=== PATIENT | male | born 1960 | race Two or more races ===

== ENCOUNTER 2025-11-19 17:56 | Inpatient (IN) | payer MEDICAID, OTHER ==
[~2025-11-19] VITALS: Ht 185.4 cm; Wt 89.5 kg
[2025-11-19 18:05] VITALS: PULSE 74; RESP 14; O2SAT 100
--- NOTE | 2025-11-19 19:24 | DVH ---
EXAM: CT HEAD WITHOUT CONTRAST INDICATION: ALOC TECHNIQUE: CT of the head without intravenous contrast. Radiation Dose Information: CT Dose: CTDI volume is 55.86 mGy. Dose-length product is 1007.13 mGy*cm The dose indicators for CT are the volume Computed Tomography (CT) Dose Index (CTDIvol) and the Dose Length Product (DLP), and are measured in units of mGy and mGy-cm, respectively. These indicators are not patient dose, but values generated from the CT scanner acquisition factors. The report includes radiation exposure data for exposures received during this examination. COMPARISON: None FINDINGS: There is no evidence of acute intracranial hemorrhage, extra-axial collection, mass effect, midline shift, herniation or hydrocephalus. The ventricles, sulci and cisterns are age appropriate. The ramos-white differentiation is intact. Patchy periventricular and subcortical white matter hypoattenuation is nonspecific but may be related to small vessel ischemic disease. The visualized paranasal sinuses and mastoid air cells are clear. The surrounding soft tissues and osseous structures are unremarkable. IMPRESSION: No acute intracranial abnormality.
--- NOTE | 2025-11-19 19:32 | DVH ---
INDICATION: SOB TECHNIQUE: Frontal view of the chest. COMPARISON: None FINDINGS: . Cardiomegaly . There is no evidence of pleural disease. The lungs are clear. The bony structures of the chest are intact without fracture. IMPRESSION: 1. Cardiomegaly with chf
[2025-11-19 19:35] LABS: Hematocrit 37.3 % (41.0-53.0); Hemoglobin 12.6 g/dL (13.5-17.5); Mean Corpuscular Hemoglobin 31.6 pg (28.0-32.0); Mean Corpuscular Volume 93.2 fL (80.0-100.0); Nucleated Red Blood Cells % 0.0 %
[2025-11-19] MEDS: SODIUM CHLORIDE 0.9% 2,000 ML IV ONE (19:48)
[2025-11-19 19:50] LABS: Alanine Aminotransferase 17 U/L (7-40); Albumin 4.1 g/dL (3.2-4.8); Anion Gap 7 (5-15); BUN/Creatinine Ratio 16.2 (10.0-20.0); Blood Urea Nitrogen 12 mg/dL (9-23); Calcium 9.5 mg/dL (8.7-10.4); Carbon Dioxide 28 mmol/L (20-31); Chloride 103 mmol/L (98-107); Glucose 102 mg/dL (74-106); Magnesium 2.0 mg/dL (1.6-2.6); Potassium 4.0 mmol/L (3.5-5.1); Sodium 138 mmol/L (136-145); Total Protein 6.7 g/dL (5.7-8.2)
[2025-11-19 19:51] LABS: Bilirubin, Total 0.4 mg/dL (0.2-1.0)
[2025-11-19 19:59] LABS: Alkaline Phosphatase 37 U/L (46-116)
--- NOTE | 2025-11-19 20:00 | ECG ---
[facility] Test Date: 2025-11-19 Test Time: 17:59:25 Pat Name: STEVO JAMISON Department: [facility] ED Patient ID: [id number] Room: 0284 Gender: M Population Health Coach: BURT : 1960 Requested By: EMERGENCY EMERGENCY Order Number: [id number] Reading MD: Dontae Montoya Measurements Intervals [place] Rate: 75 P: 82 SC: 141 QRS: 37 QRSD: 136 T: 72 QT: 419 QTc: 468 Interpretive Statements Sinus rhythm IVCD, consider atypical RBBB Electronically Signed On 11-22-2025 17:05:09 PST by Dontae Montoya Please click the below link to view image of tracing.
--- NOTE | 2025-11-19 20:01 | ED.PDOC ---
History of Present Illness HPI Comments 65 y/o M is BIBA from [facility] for c/c of AMS. Per EMS personnel report, patient was found altered, this evening. Normally, patient is reported by staff to be A&Ox3, ambulating and communicating without issue, at baseline. On scene, patient was found with pinpoint pupils and unresponsive to verbal or painful stimuli. All other vitals stable and within normal limits. Limited history of schizophrenia and hypertension. No change with 2x IN and IV Narcan administration. Patient arrived to ED on 100% O2 at 2LPM [place]. Further history is unobtainable, due to patient's current clinical presentation and absence of family/lime kiln and recausticizing operator historian. Chief Complaint: ALOC Time Seen by MD: 18:20 Reviewed Notes: Nurses Notes, Fudger Notes, Medications, Allergies Allergies: Coded Allergies: Penicillins (Verified Allergy, Unknown, 11/19/25) Information Source: Patient, Emergency Med Personnel Mode of Arrival: EMS Severity: Moderate Timing: Hours Duration: Since onset Prehospital treatment: None Past Medical History PAST MEDICAL HISTORY: Denies Surgical History: Denies all surgeries Family History Family History: Unknown Social History Smoker: Non-Smoker Alcohol: Denies ETOH Use Drugs: Denies Drug Use Lives In: Home All Other Systems: Reviewed and Negative (As per HPI) Physical Exam General Appearance: No Apparent Distress, Obese HEENT: Normal ENT Inspection, Pharynx Normal, TMs Normal Neck: Full Range of Motion, Non-Tender, Normal, Normal Inspection Respiratory: Chest Non-Tender, Lungs Clear, No Accessory Muscle Use, No Respiratory Distress, Normal Breath Sounds Cardiovascular: No Edema, No JVD, No Murmur, No Gallop, Normal Peripheral Pulses, Regular Rate/Rhythm Breast Exam: Deferred Gastrointestinal: No Organomegaly, Non Tender, No Pulsatile Mass, Normal Bowel Sounds, Soft Genitalia: Deferred Pelvic: Deferred Rectal: Deferred Extremities: No calf tenderness, Normal capillary refill, Normal inspection, Normal range of motion, Non-tender, No pedal edema Musculoskeletal : Apperance: Normal Neurologic: Alert, operations label clerk II-XII nml as Tested, No Motor Deficits, Normal Affect, Normal Mood, No Sensory Deficits Cerebellar Function: Normal Reflexes: Normal Skin: Dry, Normal Color, Warm Lymphatic: No Adenopathy Was a procedure done? Was a procedure done?: No Differential Dx Considerations may include: encephalopathy, dehydration, electrolyte imbalance, opiate abuse, among others X-Ray, Labs, Meds, VS Vital Signs Date Time Temp Pulse Resp B/P (MAP) Pulse Ox O2 Delivery O2 Flow Rate FiO2 11/19/25 19:02 74 14 86/53 (64) 99 11/19/25 18:05 74 14 100 Room Air* 0 21 11/19/25 18:05 98.4 74 14 111/62 (78) 100 98.4 11/19/25 17:59 75 11/19/25 17:58 97.4 75 14 134/78 100 97.4 Lab Test 11/19/25 20:07 11/19/25 18:57 11/19/25 18:30 Range/Units Troponin I High Sensitivity Pending 3 L </=54 ng/L White Blood Count 6.2 4.4-10.8 10^3/uL Red Blood Count 4.00 L 4.5-5.90 10^6/uL Hemoglobin 12.6 L 13.5-17.5 g/dL Hematocrit 37.3 L 41.0-53.0 % Mean Corpuscular Volume 93.2 80.0-100.0 fL Mean Corpuscular Hemoglobin 31.6 28.0-32.0 pg Mean Corpuscular Hemoglobin Concent 33.9 32.0-36.0 g/dL Red Cell Distribution Width 15.1 H 11.8-14.3 % Platelet Count 213 140-450 10^3/uL Mean Platelet Volume 7.4 6.9-10.8 fL Neutrophils (%) (Auto) 72.5 37.0-80.0 % Lymphocytes (%) (Auto) 19.1 10.0-50.0 % Monocytes (%) (Auto) 8.0 0.0-12.0 % Eosinophils (%) (Auto) 0.1 0.0-7.0 % Basophils (%) (Auto) 0.3 0.0-2.0 % Neutrophils # (Auto) 4.5 1.6-8.6 10 ^3/uL Lymphocytes # (Auto) 1.2 0.4-5.4 10 ^3/uL Monocytes # (Auto) 0.5 0-1.3 10 ^3/uL Eosinophils # (Auto) 0 0-0.8 10 ^3/uL Basophils # (Auto) 0 0-0.2 10 ^3/uL Nucleated Red Blood Cells 0.0 % Sodium Level 138 136-145 mmol/L Potassium Level 4.0 3.5-5.1 mmol/L Chloride Level 103 98-107 mmol/L Carbon Dioxide Level 28 20-31 mmol/L Anion Gap 7 5-15 Blood Urea Nitrogen 12 9-23 mg/dL Creatinine 0.74 0.700-1.30 mg/dL Glomerular Filtration Rate Calc 101 >90 mL/min BUN/Creatinine Ratio 16.2 10.0-20.0 Serum Glucose 102 74-106 mg/dL Lactic Acid Level 1.1 0.4-2.0 mmol/L Calcium Level 9.5 8.7-10.4 mg/dL Magnesium Level 2.0 1.6-2.6 mg/dL Total Bilirubin 0.4 0.2-1.0 mg/dL Aspartate Amino Transferase (AST) 17 13-40 U/L Alanine Aminotransferase (ALT) 17 7-40 U/L Alkaline Phosphatase 37 L 46-116 U/L Total Protein 6.7 5.7-8.2 g/dL Albumin 4.1 3.2-4.8 g/dL Plasma/Serum Blood Alcohol Pending POC Glucose 103 70-106 mg/dl Current Medications Medications (Trade) Dose Ordered Sig/Kaelyn Route Start Time Stop Time Status Last Admin Sodium Chloride 2,000 ml @ 1,000 mls/hr Q2H ONCE IV 11/19/25 19:30 11/19/25 21:29 11/19/25 19:48 Time of 1ST Reevaluation: 18:50 Reevaluation 1ST: Unchanged Patient Education/Counseling: Diagnosis, Treatment, Need For Follow Up Family Education/Counseling: No Family Present SEPSIS Sepsis Screen Date sepsis recognized/suspect: Nov 19, 2025 Time Sepsis recognized/suspect: 1804 Recent Procedure: No On Antibiotic Therapy: No Respiratory Rate >20: No Heart Rate >90: No Temp<36 C (96.8 F) or >38.3 C: No SBP <90 or MAP <65 mmHG: No New Acute Mental Status Change: Yes Is the patient on CPAP, BIPAP,: No Physician Orders Comprehensive Metabolic Panel (11/19/25 18:24) Urinalysis (11/19/25 18:24) Chest Portable (11/19/25 18:24) Head Without Contrast (11/19/25 18:24) Drug Screen (11/19/25 18:24) Accounts Payable Or Receivable Clerk (11/19/25 18:24) Blood Culture (11/19/25 18:24) Magnesium (11/19/25 18:24) Blood Alcohol (11/19/25 18:24) Troponin-I Hs (11/19/25 19:24) Sodium Chloride 0.9% (11/19/25 19:30) Vital Signs Date Time Temp Pulse Resp B/P (MAP) Pulse Ox O2 Delivery O2 Flow Rate FiO2 11/19/25 19:02 74 14 86/53 (64) 99 11/19/25 18:05 74 14 100 Room Air* 0 21 11/19/25 18:05 98.4 74 14 111/62 (78) 100 98.4 11/19/25 17:59 75 11/19/25 17:58 97.4 75 14 134/78 100 97.4 Laboratory Tests Test 11/19/25 18:57 Lactic Acid Level 1.1 mmol/L (0.4-2.0) White Blood Count 6.2 10^3/uL (4.4-10.8) Medications Medications Dose Ordered Sig/Kaelyn Route Start Time Stop Time Status Last Admin Dose Admin Sodium Chloride 2,000 ml @ 1,000 mls/hr Q2H ONCE IV 11/19/25 19:30 11/19/25 21:29 11/19/25 19:48 Departure 1 Departure Time of Disposition: 20:30 Impression: Primary Impression: Metabolic encephalopathy Additional Impression: Suspected drug overdose Disposition: 09 ADMITTED INPATIENT Admit to: Med Surg Condition: Guarded Comments 65-year-old male with a history of schizophrenia came by EMS from his intermediate after they found him very somnolent. He has been difficult to arouse and appears sedated. Lab work and head CT were performed. Patient will need to be admitted for metabolic encephalopathy, suspected sedative overdose. Critical Care Note Critical Care Time?: Yes (35 min-critical care time only) Critical care comment: Total critical care time: Approximately 36 minutes Due to a high probability of clinically significant, life threatening deterioration, the patient required my highest level of preparedness to intervene emergently and I personally spent this critical care time directly and personally managing the patient. This critical care time included obtaining a history; examining the patient; pulse oximetry; ordering and review of studies; arranging urgent treatment with development of a management plan; evaluation of patient's response to treatment; frequent reassessment; and, discussions with other providers. This critical care time was performed to assess and manage the high probability of imminent, life-threatening deterioration that could result in multi-organ failure. It was exclusive of separately billable procedures and treating other patients. Stability Stability form required: No Heart Score Heart Score: Heart Score Response (Comments) Value History N/A 0 EKG N/A 0 Age N/A 0 Risk Factors N/A 0 Troponin N/A 0 Total 0 I personally scribed for VILMA VITALE MD ([email or web address]) on 11/19/25 at 20:01. Electronically submitted by Kelvin Lambert [email or web address]). VILMA VITALE MD Nov 19, 2025 20:01
[2025-11-19] MEDS ORDERED: DOCUSATE SOD 100 MG CAP PO PRN (22:30)
[2025-11-19] MEDS ORDERED: HYDROcodone-ACET 5/325MG TAB PO PRN (22:30)
[2025-11-19] MEDS ORDERED: ONDANSETRON HCL 4 MG/2 ML VIAL IV PRN ×2 (22:30→22:45)
[2025-11-19] MEDS ORDERED: ACETAMINOPHEN 325 MG TAB PO PRN ×2 (22:30→22:45)
[2025-11-19] MEDS ORDERED: DEXTROSE (50%) 50ML SYRG IV PRN (22:30)
--- NOTE | 2025-11-19 22:42 | DVHHP2 ---
History of Present Illness HPI 65 y/o M is BIBA from [facility] for c/c of AMS. Per EMS personnel report, patient was found altered, this evening. Normally, patient is reported by staff to be A&Ox3, ambulating and communicating without issue, at baseline. On scene, patient was found with pinpoint pupils and unresponsive to verbal or painful stimuli. All other vitals stable and within normal limits. Limited history of schizophrenia and hypertension. No change with 2x IN and IV Narcan administration. Patient arrived to ED on 100% O2 at 2LPM [place]. Further history is unobtainable, due to patient's current clinical presentation and absence of family/torch brazer historian. This pt was sent in by me from [facility]. Pt returned to [facility] from a day trip and found to be altered, suspected to be under the influence of abused substance. Home Meds Reported Medications Hydroxyzine Hcl (Hydroxyzine Hcl) 50 Mg Tab, 50 MG PO, TAB 11/20/25 Nicotine (Nicoderm 21MG/24HR) 1 Patch Ph, TOP DAILY, #28 PATCH 1 Refill 11/20/25 Rosuvastatin Calcium (Crestor) 5 Mg Tab, 5 MG PO, TAB 11/20/25 Aripiprazole (Abilify) 2 Mg Tab, 30 TAB PO DAILY, #30 TAB 2 Refills 11/20/25 Duloxetine HCl (Duloxetine HCl) 60 Mg Cap, 1 CAP PO DAILY 11/20/25 Midodrine HCl (Midodrine Hydrochloride) 5 Mg Tab, 1 TAB PO TID 11/20/25 Metformin Hydrochloride (Metformin Hcl) 500 Mg Tab, 2 TAB PO BID 11/20/25 Review of Systems Constitutional: No symptom reported Ears, Nose, & Throat: No symptom reported Eyes: No symptom reported Pulmonary/Respiratory: No symptom reported Cardiovascular: No symptom reported Genitourinary: No symptom reported H&P Exam Vital Signs Vital Signs Date Time Temp Pulse Resp B/P (MAP) Pulse Ox O2 Delivery O2 Flow Rate FiO2 11/19/25 21:00 73 14 126/74 (91) 99 11/19/25 19:30 97.7 97.7 11/19/25 18:05 Room Air* 0 21 General Appeara: Well developed, Well nourished Nasal Exam: Normal inspection Pulmonary/Respiratory: Normal inspection Cardiovascular/Chest: Normal inspection SEPSIS Sepsis Screen Date sepsis recognized/suspect: Nov 19, 2025 Time Sepsis recognized/suspect: 1804 Recent Procedure: No On Antibiotic Therapy: No Respiratory Rate >20: No Heart Rate >90: No Temp<36 C (96.8 F) or >38.3 C: No SBP <90 or MAP <65 mmHG: No New Acute Mental Status Change: Yes Is the patient on CPAP, BIPAP,: No Physician Orders Urinalysis (11/19/25 18:24) Chest Portable (11/19/25 18:24) Head Without Contrast (11/19/25 18:24) Drug Screen (11/19/25 18:24) Cadworx Piping Designer (11/19/25 18:24) Blood Culture (11/19/25 18:24) B-Type Natriuretic Peptide (11/19/25 22:16) Consistent Carb(Ccho)Diabetes (11/20/25 Breakfast) Atorvastatin (Lipitor) (11/20/25 22:00) Duloxetine Hcl Capsule (Cymbalta Capsule (11/20/25 10:00) Glucose Blood (Accu-Chek Comfort Curve T (11/20/25 07:00) Insulin R (Human) (Insulin R) (11/20/25 07:00) Dextrose 50% Syringe (11/19/25 22:30) Allergies (11/19/25 22:16) Sodium Chloride Lock (Saline Lock Ns) (11/20/25 06:00) Oxygen Per Hour (11/19/25 22:16) Hydrocodone-Acet 5/325mg Tab ([place] 5/32 (11/19/25 22:30) Ondansetron Hcl (Zofran) (11/19/25 22:30) Docusate Sodium Capsule (Colace Capsule) (11/19/25 22:30) Fall Risk Precautions In Place QSHIFT (11/19/25 22:16) Complete Blood Count (11/20/25 04:00) Comprehensive Metabolic Panel (11/20/25 04:00) Condition: Serious (11/19/25 22:16) Acetaminophen Tablet (Tylenol Tablet) (11/19/25 22:30) Maintain Bed Rest (11/19/25 22:16) Sequential Compression Device (11/19/25 ) Admit (11/19/25 22:36) Code Status (11/19/25 22:36) Sodium Chloride 0.9% (11/19/25 22:45) Ondansetron Hcl (Zofran) (11/19/25 22:45) Enoxaparin Sodium (Lovenox) (11/20/25 10:00) Condition: Serious (11/19/25 22:36) Acetaminophen Tablet (Tylenol Tablet) (11/19/25 22:45) Nitroglycerin Sublingual (Ntrostat Subli (11/19/25 22:45) Morphine Sulfate Injection (11/19/25 22:45) Stat Ekg For Chest Pain (11/19/25 22:36) Notify Md Of Changes From Base (11/19/25 22:36) Venetian Blind Cleaner For 24 Hours (11/19/25 22:36) Emergency Dysrhythmia Protocol (11/19/25 22:36) Rhythm Strips Once Every Shift (11/19/25 22:36) Oxygen By Nasal Cannula (11/19/25 22:36) Vital Signs Date Time Temp Pulse Resp B/P (MAP) Pulse Ox O2 Delivery O2 Flow Rate FiO2 11/19/25 21:00 73 14 126/74 (91) 99 11/19/25 20:30 64 15 125/78 (94) 98 11/19/25 19:30 97.7 73 14 87/56 (66) 97 97.7 11/19/25 19:02 74 14 86/53 (64) 99 11/19/25 18:05 74 14 100 Room Air* 0 21 11/19/25 18:05 98.4 74 14 111/62 (78) 100 98.4 11/19/25 17:59 75 11/19/25 17:58 97.4 75 14 134/78 100 97.4 Laboratory Tests Test 11/19/25 18:57 Lactic Acid Level 1.1 mmol/L (0.4-2.0) White Blood Count 6.2 10^3/uL (4.4-10.8) Medications Medications Dose Ordered Sig/Kaelyn Route Start Time Stop Time Status Last Admin Dose Admin Sodium Chloride 2,000 ml @ 1,000 mls/hr Q2H ONCE IV 11/19/25 19:30 11/19/25 21:29 DC 11/19/25 19:48 1,000 MLS/HR Labs/Xrays Labs Test 11/19/25 20:07 11/19/25 18:57 11/19/25 18:30 Range/Units Troponin I High Sensitivity 4 </=54 ng/L White Blood Count 6.2 4.4-10.8 10^3/uL Red Blood Count 4.00 L 4.5-5.90 10^6/uL Hemoglobin 12.6 L 13.5-17.5 g/dL Hematocrit 37.3 L 41.0-53.0 % Mean Corpuscular Volume 93.2 80.0-100.0 fL Mean Corpuscular Hemoglobin 31.6 28.0-32.0 pg Mean Corpuscular Hemoglobin Concent 33.9 32.0-36.0 g/dL Red Cell Distribution Width 15.1 H 11.8-14.3 % Platelet Count 213 140-450 10^3/uL Mean Platelet Volume 7.4 6.9-10.8 fL Neutrophils (%) (Auto) 72.5 37.0-80.0 % Lymphocytes (%) (Auto) 19.1 10.0-50.0 % Monocytes (%) (Auto) 8.0 0.0-12.0 % Eosinophils (%) (Auto) 0.1 0.0-7.0 % Basophils (%) (Auto) 0.3 0.0-2.0 % Neutrophils # (Auto) 4.5 1.6-8.6 10 ^3/uL Lymphocytes # (Auto) 1.2 0.4-5.4 10 ^3/uL Monocytes # (Auto) 0.5 0-1.3 10 ^3/uL Eosinophils # (Auto) 0 0-0.8 10 ^3/uL Basophils # (Auto) 0 0-0.2 10 ^3/uL Nucleated Red Blood Cells 0.0 % Sodium Level 138 136-145 mmol/L Potassium Level 4.0 3.5-5.1 mmol/L Chloride Level 103 98-107 mmol/L Carbon Dioxide Level 28 20-31 mmol/L Anion Gap 7 5-15 Blood Urea Nitrogen 12 9-23 mg/dL Creatinine 0.74 0.700-1.30 mg/dL Glomerular Filtration Rate Calc 101 >90 mL/min BUN/Creatinine Ratio 16.2 10.0-20.0 Serum Glucose 102 74-106 mg/dL Lactic Acid Level 1.1 0.4-2.0 mmol/L Calcium Level 9.5 8.7-10.4 mg/dL Magnesium Level 2.0 1.6-2.6 mg/dL Total Bilirubin 0.4 0.2-1.0 mg/dL Aspartate Amino Transferase (AST) 17 13-40 U/L Alanine Aminotransferase (ALT) 17 7-40 U/L Alkaline Phosphatase 37 L 46-116 U/L Total Protein 6.7 5.7-8.2 g/dL Albumin 4.1 3.2-4.8 g/dL Plasma/Serum Blood Alcohol < 3.0 <10 mg/dL POC Glucose 103 70-106 mg/dl Assessment/Plan Primary Diagnosis 65 y/o M is BIBA from [facility] for c/c of AMS. Per EMS personnel report, patient was found altered, this evening. Normally, patient is reported by staff to be A&Ox3 as his baseline, ambulating and communicating without issue, at baseline. On scene, patient was found with pinpoint pupils and unresponsive to verbal or painful stimuli. All other vitals stable and within normal limits. Limited history of schizophrenia and hypertension. No change with 2x IN and IV Narcan administration. Patient arrived to ED on 100% O2 at 2LPM NC. Further history is unobtainable, due to patient's current clinical presentation and absence of family/torch brazer historian. acute metabolic encephalopathy possible drug abuse weakness protein malnutrition admitted for further care unsafe for discharge Plan discussed with: Other (nursing) EVELIA GONZALEZ DO Nov 19, 2025 22:42 TOY JARRETT DNP Nov 19, 2025 23:07
[2025-11-19] MEDS: SODIUM CHLORIDE 0.9% 1,000 ML IV SCH (22:45)
[2025-11-19] MEDS ORDERED: MORPHINE SULFATE INJ 2 MG/ml SYRG IV PRN (22:45)
[2025-11-19] MEDS ORDERED: NITROGLYCERIN 0.4 MG SL TAB SL PRN (22:45)
[2025-11-20 06:19] LABS: Hematocrit 38.0 % (41.0-53.0); Hemoglobin 13.0 g/dL (13.5-17.5); Mean Corpuscular Hemoglobin 31.7 pg (28.0-32.0); Mean Corpuscular Volume 92.7 fL (80.0-100.0); Nucleated Red Blood Cells % 0.1 %
[2025-11-20] MEDS: SODIUM CHLOR 0.9% PF (SALINE LOCK) 10ML VIAL/SYR IV SCH (06:21)
[2025-11-20] MEDS: ACCU-CHEK COMFORT CURVE STRIP VI SCH (06:33)
[2025-11-20] MEDS: InsuLIN REG 1unit/0.01ml Soln (100units/ml) SC SCH (06:34)
[2025-11-20 06:36] LABS: Alanine Aminotransferase 15 U/L (7-40); Albumin 3.9 g/dL (3.2-4.8); Alkaline Phosphatase 34 U/L (46-116); Anion Gap 7 (5-15); BUN/Creatinine Ratio 12.7 (10.0-20.0); Bilirubin, Total 0.5 mg/dL (0.2-1.0); Blood Urea Nitrogen 8 mg/dL (9-23); Calcium 9.3 mg/dL (8.7-10.4); Carbon Dioxide 29 mmol/L (20-31); Chloride 106 mmol/L (98-107); Glucose 107 mg/dL (74-106); Potassium 3.9 mmol/L (3.5-5.1); Sodium 142 mmol/L (136-145); Total Protein 6.1 g/dL (5.7-8.2)
[2025-11-20 07:43] LABS: Urine Protein, UAD Negative (Negative)
[2025-11-20 07:52] LABS: Amphetamine Screen, Urine Neg (NEGATIVE); Barbiturate Scree,Urine Neg (NEGATIVE); Benzodiazephine Screen, Urine Neg (NEGATIVE); Cannabinoid Screen, Urine Neg (NEGATIVE); Cocaine Screen, Urine Neg (NEGATIVE); Opiate Scree,Urine Neg (NEGATIVE); Phencyclidine Screen, Urine Neg (NEGATIVE)
[2025-11-20 08:00] VITALS: O2SAT 99
[2025-11-20] MEDS: ENOXAPARIN SOD 40 MG/0.4 ML SYRINGE SC SCH (10:31)
[2025-11-20 12:25] VITALS: BP 120/79; PULSE 110; RESP 17; TEMP 97.7; O2SAT 100
--- NOTE | 2025-11-20 12:36 | DVHPN2 ---
Progress Note Date Seen: Nov 20, 2025 Medical Necessity Reason Pt with a Central, PICC or Fol: No Subjective Review of Systems: HEENT:Normal, CVS:Normal, RESPIRATORY:Normal Objective vital signs Vital Sign Date Time Temp Pulse Resp B/P (MAP) Pulse Ox O2 Delivery O2 Flow Rate FiO2 11/20/25 10:00 98.4 93 18 110/71 (84) 98 98.4 11/20/25 08:00 Room Air* 0 21 Total Intake and Output 11/19/25 11/19/25 11/20/25 15:00 23:00 07:00 Intake Total 2000 ml 480 ml Output Total 750 ml Balance 2000 ml -270 ml medications Current Medications Medications Dose Ordered Sig/Kaelyn Route Start Time Stop Time Status Last Admin Dose Admin Atorvastatin Calcium 10 mg HS PO 11/20/25 22:00 Duloxetine HCl 30 mg DAILY PO 11/20/25 10:00 11/20/25 10:31 30 MG Diagnostic Test (Pha) 1 strip ACHS 11/20/25 07:00 11/20/25 06:33 1 STRIP Insulin Human Regular ACHS SC 11/20/25 07:00 Dextrose 50 ml UD PRN IV 11/19/25 22:30 Sodium Chloride 10 ml Q8HR IV 11/20/25 06:00 11/20/25 06:21 10 ML Acetaminophen/ Hydrocodone Bitart 1 tab Q4HP PRN PO 11/19/25 22:30 Docusate Sodium 100 mg BIDPRN PRN PO 11/19/25 22:30 Acetaminophen 650 mg Q6HP PRN PO 11/19/25 22:30 Sodium Chloride 1,000 ml @ 60 mls/hr [id number] IV 11/19/25 22:45 11/19/25 22:45 60 MLS/HR Ondansetron HCl 4 mg Q4HP PRN IV 11/19/25 22:45 Enoxaparin Sodium 40 mg DAILY SC 11/20/25 10:00 11/20/25 10:31 40 MG Acetaminophen 650 mg Q6HP PRN PO 11/19/25 22:45 Nitroglycerin 0.4 mg Q5MINP PRN SL 11/19/25 22:45 Morphine Sulfate 2 mg Q30M PRN IV 11/19/25 22:45 Examination: GENERAL:Normal, HEENT:Normal, NECK:Normal laboratory and microbiology Laboratory Tests 11/20/25 05:31 Test 11/20/25 05:31 Range/Units Serum Glucose 107 H 74-106 mg/dL Labs and/or images reviewed: Labs reviewed by me, Image(s) reviewed by me Problem List/Assessment/Plan Problem List/Assessment/Plan 65 y/o M is BIBA from [facility] for c/c of AMS. Per EMS personnel report, patient was found altered, this evening. Normally, patient is reported by staff to be A&Ox3 as his baseline, ambulating and communicating without issue, at baseline. On scene, patient was found with pinpoint pupils and unresponsive to verbal or painful stimuli. All other vitals stable and within normal limits. Limited history of schizophrenia and hypertension. No change with 2x IN and IV Narcan administration. Patient arrived to ED on 100% O2 at 2LPM NC. Further history is unobtainable, due to patient's current clinical presentation and absence of family/records assistant historian. acute metabolic encephalopathy possible drug abuse weakness protein malnutrition admitted for further care unsafe for discharge still altered Plan discussed with: Other (nursing) My Orders My Orders Orders - EVELIA GONZALEZ DO Procedure Category Date Status Time Admit ADMIT 11/19/25 Transmitted 22:36 Code Status CODE 11/19/25 Transmitted 22:36 Sodium Chloride 0.9% PHA 11/19/25 In Process 22:45 Ondansetron Hcl PHA 11/19/25 In Process (Zofran) 22:45 Enoxaparin Sodium PHA 11/20/25 In Process (Lovenox) 10:00 Condition: Serious JEAN-CLAUDE 11/19/25 In Process 22:36 Acetaminophen Tablet PHA 11/19/25 In Process (Tylenol Tablet) 22:45 Nitroglycerin PHA 11/19/25 In Process Sublingual (Ntrostat 22:45 Morphine Sulfate PHA 11/19/25 In Process Injection 22:45 Stat Ekg For Chest JEAN-CLAUDE 11/19/25 In Process Pain 22:36 Notify Of Changes JEAN-CLAUDE 11/19/25 In Process From Base 22:36 Loan Collector For JEAN-CLAUDE 11/19/25 In Process 24 Hours 22:36 Emergency Dysrhythmia JEAN-CLAUDE 11/19/25 In Process Protocol 22:36 Rhythm Strips Once JEAN-CLAUDE 11/19/25 In Process Every Shift 22:36 Oxygen By Nasal RT 11/19/25 Transmitted Cannula 22:36 EVELIA GONZALEZ DO Nov 20, 2025 12:36
[2025-11-20 13:10] VITALS: BP 120/79; PULSE 110; RESP 100; RESP 17; TEMP 97.7; O2SAT 100
[2025-11-20 17:00] VITALS: BP 128/84; PULSE 71; RESP 19; TEMP 98.1; O2SAT 99
[2025-11-20] MEDS ORDERED: NIC21P TOP (19:01)
[2025-11-20] MEDS ORDERED: HYDR50TA69 PO (19:01)
[2025-11-20] MEDS ORDERED: DULO1CAP6 PO (19:01)
[2025-11-20] MEDS ORDERED: ROSU5TAB5 PO (19:01)
[2025-11-20] MEDS ORDERED: MIDO5TAB22 PO (19:01)
[2025-11-20] MEDS ORDERED: ARIP2TAB PO (19:01)
[2025-11-20] MEDS ORDERED: METF-370 PO (19:01)
[2025-11-20 20:00] VITALS: PULSE 86; RESP 20; O2SAT 99
[2025-11-20 21:00] VITALS: BP 119/82; PULSE 94; RESP 18; TEMP 97.8; O2SAT 100
[2025-11-20] MEDS: ATORVASTATIN 20 MG TAB PO SCH (21:53)
[2025-11-21] VITALS (7 sets, daily range): BP systolic 122–137; BP diastolic 72–97; PULSE 88–115; RESP 16–20; TEMP 36.6; O2SAT 97–100
--- NOTE | 2025-11-21 11:04 | DVHDS2 ---
Discharge Summary Date of Admission Nov 19, 2025 at 22:36 Date of Discharge: Nov 21, 2025 Labs/Diagnostic Data: Laboratory Results Test 11/21/25 06:18 11/20/25 07:30 11/20/25 05:31 11/19/25 20:07 POC Glucose 80 mg/dl (70-106) Urine Color Colorless (Yellow) Urine Clarity Clear (Clear) Urine pH 7.0 (5.0-9.0) Urine Specific [place] 1.005 (1.001-1.035) Urine Protein Negative (Negative) Urine Ketones Negative (Negative) Urine Blood Negative /uL (Negative) Urine Nitrite Negative (Negative) Urine Bilirubin Negative (Negative) Urine Urobilinogen Normal mg/dL (Negative) Urine Leukocyte Esterase Negative /uL (Negative) Urine RBC <1 /hpf (0 - 3) Urine Microscopic WBC < 1 /HPF (0-3) Urine Squamous Epithelial Cells None seen /hpf (<5) Urine Bacteria None seen /hpf (None Seen) Urine Glucose Normal mg/dL (Normal) Urine Opiates Screen Neg (NEGATIVE) Urine Fentanyl Screen Neg (NEGATIVE) Urine Barbiturates Screen Neg (NEGATIVE) Urine Phencyclidine Screen Neg (NEGATIVE) Urine Amphetamines Screen Neg (NEGATIVE) Urine Benzodiazepines Screen Neg (NEGATIVE) Urine Cocaine Screen Neg (NEGATIVE) Urine Cannabinoids Screen Neg (NEGATIVE) White Blood Count 5.8 10^3/uL (4.4-10.8) Red Blood Count 4.10 10^6/uL (4.5-5.90) Hemoglobin 13.0 g/dL (13.5-17.5) Hematocrit 38.0 % (41.0-53.0) Mean Corpuscular Volume 92.7 fL (80.0-100.0) Mean Corpuscular Hemoglobin 31.7 pg (28.0-32.0) Mean Corpuscular Hemoglobin Concent 34.2 g/dL (32.0-36.0) Red Cell Distribution Width 15.1 % (11.8-14.3) Platelet Count 212 10^3/uL (140-450) Mean Platelet Volume 7.2 fL (6.9-10.8) Neutrophils (%) (Auto) 69.5 % (37.0-80.0) Lymphocytes (%) (Auto) 21.1 % (10.0-50.0) Monocytes (%) (Auto) 8.8 % (0.0-12.0) Eosinophils (%) (Auto) 0.2 % (0.0-7.0) Basophils (%) (Auto) 0.4 % (0.0-2.0) Neutrophils # (Auto) 4.0 10 ^3/uL (1.6-8.6) Lymphocytes # (Auto) 1.2 10 ^3/uL (0.4-5.4) Monocytes # (Auto) 0.5 10 ^3/uL (0-1.3) Eosinophils # (Auto) 0 10 ^3/uL (0-0.8) Basophils # (Auto) 0 10 ^3/uL (0-0.2) Nucleated Red Blood Cells 0.1 % Sodium Level 142 mmol/L (136-145) Potassium Level 3.9 mmol/L (3.5-5.1) Chloride Level 106 mmol/L (98-107) Carbon Dioxide Level 29 mmol/L (20-31) Anion Gap 7 (5-15) Blood Urea Nitrogen 8 mg/dL (9-23) Creatinine 0.63 mg/dL (0.700-1.30) Glomerular Filtration Rate Calc 106 mL/min (>90) BUN/Creatinine Ratio 12.7 (10.0-20.0) Serum Glucose 107 mg/dL (74-106) Calcium Level 9.3 mg/dL (8.7-10.4) Total Bilirubin 0.5 mg/dL (0.2-1.0) Aspartate Amino Transferase (AST) 17 U/L (13-40) Alanine Aminotransferase (ALT) 15 U/L (7-40) Alkaline Phosphatase 34 U/L (46-116) Total Protein 6.1 g/dL (5.7-8.2) Albumin 3.9 g/dL (3.2-4.8) Troponin I High Sensitivity 4 ng/L (</=54) Test 11/19/25 18:57 Lactic Acid Level 1.1 mmol/L (0.4-2.0) Magnesium Level 2.0 mg/dL (1.6-2.6) B-Type Natriuretic Peptide 20.14 pg/mL (0-100) Plasma/Serum Blood Alcohol < 3.0 mg/dL (<10) Other Laboratory Tests 11/20/25 05:31 Brief Hx & Hospital Course: 65 y/o M is BIBA from [facility] for c/c of AMS. Per EMS personnel report, patient was found altered, this evening. Normally, patient is reported by staff to be A&Ox3 as his baseline, ambulating and communicating without issue, at baseline. On scene, patient was found with pinpoint pupils and unresponsive to verbal or painful stimuli. All other vitals stable and within normal limits. Limited history of schizophrenia and hypertension. No change with 2x IN and IV Narcan administration. Patient arrived to ED on 100% O2 at 2LPM ND. Further history is unobtainable, due to patient's current clinical presentation and absence of family/family helper historian. acute metabolic encephalopathy possible drug abuse weakness protein malnutrition pt improved discussed with pt regarding discharge pt is slow in response but A&O x 3 Condition at Discharge: Fair Final Diagnosis/Problems List ALOC Discharge Disposition: Assisted Living Facility Discharge Instruct/Medications Diet: Cardiac 2g Na,low cholest Activity: No Restrictions, As Tolerated Scheduled Aripiprazole (Abilify), 30 TAB PO DAILY, (Reported) Duloxetine HCl (Duloxetine HCl), 1 CAP PO DAILY, (Reported) Metformin Hydrochloride (Metformin Hcl), 2 TAB PO BID, (Reported) Midodrine HCl (Midodrine Hydrochloride), 1 TAB PO TID, (Reported) Nicotine (Nicoderm 21MG/24HR), Unknown Dose TOP DAILY, (Reported) Miscellaneous Medications Hydroxyzine Hcl (Hydroxyzine Hcl), 50 MG PO, (Reported) Rosuvastatin Calcium (Crestor), 5 MG PO, (Reported) Discharge Statement: "Patient was advised to return to the ER or call 911 if any headaches, dizziness, shortness of breath, chest pain, abdominal pain, bleeding, fevers, or worsening of medical condition. Patient was counseled about treatment plan, medications, possible side effects, patientverbalized understanding. All questions were answered to the best of my ability. This discharge took greater then 30 minutes in planning, reviewing documentation, counseling the patient, and discussing with other team members." ASSESSMENT ASSESSMENT Assessment EVELIA GONZALEZ DO Nov 21, 2025 11:04
== END 2025-11-21 17:57 | DRG 816 ==
LOC: ER 17:56 → EDBD 17:56 → OVERFLOW 22:36 → WEST WING 11-20 12:24
PROVIDERS: ADMIT Internal Medicine; ATTEND Internal Medicine
DX: T65.91XA Toxic effect of unspecified substance, accidental (unintentional), initial encounter (principal); G92.8 Other toxic encephalopathy; E44.0 Moderate protein-calorie malnutrition; I10 Essential (primary) hypertension; F20.9 Schizophrenia, unspecified; Z88.0 Allergy status to penicillin; Z68.26 Body mass index [BMI] 26.0-26.9, adult
CPT/HCPCS: 36415; 70450; 71045; 80053; 80307; 80320; 81001; 82962; 83605; 83735; 83880; 84484; 85025; 87040; 87081; 93005; 96360; 96361; 99291; G0378